=== PATIENT | female | born 1990 ===

== ENCOUNTER 2019-03-16 19:37 | Emergency (ER) | payer SELFPAY ==
--- NOTE | 2019-03-16 20:21 | ED PDOC ---
HPI: Psych/Substance Abuse Time Seen by Provider: 03/16/19 19:55 Chief Complaint (Nursing): Psychiatric Evaluation Chief Complaint (Provider): Psychiatric Evaluation History Per: Patient, [employer] Work[employer] (Belkis[employer]iana #[id number]) History/Exam Limitations: no limitations Onset/Duration Of Symptoms: Days (x2 months) Current Symptoms Are (Timing): Still Present Additional Complaint(s): 28 year old female presents to the ED via EMS for a psychiatric evaluation. Patient reports that she feels depressed and hopeless after her mom two months ago and her father got admitted to a psychiatric [facility] recently. She notes having thoughts of killing herself and her one year old with overdosing on pills because she does not want to live anymore. She denies any attempt to do so. Pt reports she feels like she just wants to keep running, but then will say "god is good" and "i have hope." Additionally, she reports having bilateral upper leg/thigh pain for the past three months unrelieved by Ibuprofen 400mg. Denies injuries, swelling, difficulty walking. Of note, patient states she had one beer earlier today. Denies visual or auditory hallucinations Pt reports she has felt like this before but has never been on medication. LNMP: 03/03/19 PMD: none provided Past Medical History Reviewed: Historical Data, Nursing Documentation, Vital Signs Vital Signs: Last Vital Signs Temp 98.1 F 03/16/19 19:37 Pulse 100 H 03/16/19 19:37 Resp 22 03/16/19 19:37 BP 137/97 H 03/16/19 19:37 Pulse Ox 99 03/16/19 19:37 - Medical History PMH: Depression (not on meds) - Surgical History Other surgeries: right breast - Family History Family History: States: Unknown Family Hx - Social History Current smoker - smoking cessation education provided: No Alcohol: Social (last drink today (one beer)) Drugs: Denies - Allergies Allergies/Adverse Reactions: Allergies Allergy/AdvReac Type Severity Reaction Status Date / Time No Known Allergies Allergy Verified 03/16/19 19:37 Review of Systems ROS Statement: Except As Marked, All Systems Reviewed And Found Negative Musculoskeletal: Positive for: Leg Pain (bilateal lower extremity) Psych: Positive for: Depression, Suicidal ideation (and homicidal ideation by taking pills and giving pills to her baby) Physical Exam - Reviewed Nursing Documentation Reviewed: Yes Vital Signs Reviewed: Yes - Physical Exam Comments: GENERAL APPEARANCE: Patient is awake, alert, oriented x 3, tearful but consolable. SKIN: Warm, dry; (-) cyanosis HEAD: normocephalic, atraumatic EYES: PERRLA, EOMI ENMT: Mucous membranes moist. Airway patent: (-) stridor. NECK: (-) tenderness, (-) stiffness, (-) lymphadenopathy. HEART AND CARDIOVASCULAR: (-) irregularity; (-) murmur, (-) gallop. CHEST AND RESPIRATORY: (-) rales, (-) rhonchi, (-) wheezes; breath sounds equal. Well healed scar to right upper chest. ABDOMEN: Soft, (-) distention, (-) tenderness, (-) guarding. EXTREMITIES: Bilateral lower: (-) swelling, (-) tenderness, (-) deformities; full ROM, capillary refill less than two seconds, sensation intact, and pulses 2+. NEURO AND PSYCH: Mental status as above. 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 Pupils equal and reactive; EOMI; (-) facial asymmetry; tongue and uvula midline. Strength and DTRs symmetric. - Laboratory Results Result Diagrams: 03/16/19 20:28 03/16/19 20:28 - ECG O2 Sat by Pulse Oximetry: 99 (RA) Pulse Ox Interpretation: Normal Medical Decision Making Medical Decision Making: Initial Impression: psychiatric evaluation Time: 2015 Initial Plan: --Alcohol serum --CMP --Drug screen --U-preg --CBC with differential --Tylenol 650mg PO --Patient placed on 1:1 observation for SI/HI --Urinalysis --Will be referred to crisis after being medically cleared Pt's blood alcohol level is 275, crisis will evaluate pt when sober 23:00 case endorse to Sur[facility] WILSON, pending crisis eval and dispo -------- Scribe Attestation: Documented by Ayaka Castillo acting as a scribe for Kamran Obrien PA-C. Provider Scribe Attestation: All medical record entries made by the Scribe were at my direction and personally dictated by me. I have reviewed the chart and agree that the record accurately reflects my personal performance of the history, physical exam, medical decision making, and the department course for this patient. I have also personally directed, reviewed, and agree with the discharge instructions and di sposition. Disposition - Clinical Impression Clinical Impression: Major depression, Suicidal ideation - Patient ED Disposition Is Patient to be Admitted: Transfer of Care (case endorse to [facility], pending crisis eval and dispo) Counseled Patient/Family Regarding: Studies Performed, Diagnosis, Need For Followup - Disposition Disposition: Transfer of Care (case endorse to [facility], pending crisis eval and dispo) Disposition Time: 23:00 Condition: FAIR Forms: [employer] (Divehi)
[2019-03-16 20:33] LABS: BASO # 0.1 K/uL (0.0-0.2); BASO % 0.7 % (0.0-2.0); EOS # 0.1 K/uL (0.0-0.7); EOS % 0.9 % (0.0-4.0); HEMOGLOBIN 15.6 g/dL (12.0-16.0); LYMPH # 3.2 K/uL (1.0-4.3); LYMPH % 39.2 % (20.0-40.0); MEAN CORPUSCULAR HEMOGLOBIN 32.8 pg (27.0-31.0); MEAN CORPUSCULAR HGB CONC 34.9 g/dL (33.0-37.0); MEAN PLATELET VOLUME 7.9 fl (7.2-11.7); MONO # 0.5 K/uL (0.0-0.8); NEUT # 4.4 K/uL (1.8-7.0); NEUT % 53.2 % (50.0-75.0); NRBC % 0.1 % (0.0-0.0); RBC 4.75 Mil/uL (3.80-5.20); RED CELL DISTRIBUTION WIDTH 13.1 % (11.5-14.5); WHITE BLOOD COUNT 8.2 K/uL (4.8-10.8)
[2019-03-16 20:42] LABS: SQUAMOUS EPITHIAL 1 /hpf (0-5); URINE BACTERIA RARE (<OCC); URINE BILIRUBIN NEGATIVE (NEGATIVE); URINE BLOOD NEGATIVE (NEGATIVE); URINE CLARITY CLEAR (Clear); URINE COLOR STRAW (YELLOW); URINE GLUCOSE (UA) NEG (NEGATIVE); URINE LEUKOCYTE ESTERASE NEG Leu/uL (Negative); URINE PROTEIN NEGATIVE (NEGATIVE); URINE UROBILINOGEN 0.2-1.0 mg/dL (0.2-1.0)
[2019-03-16 20:45] LABS: ALB/GLOB RATIO 1.2 (1.0-2.1); ALBUMIN 5.1 g/dL (3.5-5.0); ALT/SGPT 21 U/L (9-52); AST/SGOT 26 U/L (14-36); BLOOD UREA NITROGEN 6 mg/dl (7-17); CALCIUM 9.5 mg/dL (8.4-10.2); GFR NON-AFRICAN AMERICAN > 60
[2019-03-16 20:58] LABS: BARBITURATES, UR NEGATIVE (NEGATIVE); BENZODIAZEPINES, UR NEGATIVE (NEGATIVE); OPIATES, UR NEGATIVE (NEGATIVE); PHENCYCLIDINE, UR NEGATIVE (NEGATIVE)
--- NOTE | 2019-03-17 01:19 | ED PDOC ---
- Laboratory Results Result Diagrams: 03/16/19 20:03/16/19 20:28 Lab Results: Total Bilirubin 0.3 mg/dl (0.2-1.3) 03/16/19 20: AST 26 U/L (14-36) 03/16/19 20: ALT 21 U/L (9-52) 03/16/19 20: Alkaline Phosphatase 78 U/L (38-126) 03/16/19 20: Total Protein 9.1 G/DL (6.3-8.2) H 03/16/19 20: Albumin 5.1 g/dL (3.5-5.0) H 03/16/19 20: Globulin 4.1 gm/dL (2.2-3.9) H 03/16/19: Albumin/Globulin Ratio 1.2 (1.0-2.1) 03/16/19 20: Urine Color Straw (YELLOW) 03/16/19 20: Urine Clarity Clear (Clear) 03/16/19 20: Urine pH 6.0 (5.0-8.0) 03/16/19 20: Ur Specific [place] < 1.005 (1.003-1.030) 03/16/19 20: Urine Protein Negative mg/dL (NEGATIVE) 03/16/19 20: Urine Glucose (UA) Neg mg/dL (NEGATIVE) 03/16/19 20: Urine Ketones Negative mg/dL (NEGATIVE) 03/16/19 20:25 Urine Blood Negative (NEGATIVE) 03/16/19 20:25 Urine Nitrate Negative (NEGATIVE) 03/16/19 20: Urine Bilirubin Negative (NEGATIVE) 03/16/19 20:25 Urine Urobilinogen 0.2-1.0 mg/dL (0.2-1.0) 03/16/19 20:25 Ur Leukocyte Esterase Neg [place]/uL (Negative) 03/16/19 20:25 Urine RBC (Auto) 1 /hpf (0-3) 03/16/19 20:25 Urine Microscopic WBC 1 /hpf (0-5) 03/16/19 20:25 Ur Squamous Epith Cells 1 /hpf (0-5) 03/16/19 20:25 Urine Bacteria Rare (<OCC) 03/16/19 20:25 - ECG O2 Sat by Pulse Oximetry: 99 (RA) - Progress ED Course And Treament: Case endorsed to staff writer from Aneta Brown PA-C pending sobriety, crisis eval 00:00 Patient sleeping; no distress 1:30 Patient awake, alert, oriented x3. Ambulating steady gait. Patient evaluated by lead supply worker; does not meet criteria for admission at this time as per Dr. Solorio Information given for outpatient follow up Disposition - Clinical Impression Clinical Impression: Alcohol-induced mood disorder - POA Present On Arrival: None - Disposition Disposition: Routine/Home Disposition Time: 01:29 Condition: STABLE Instructions: Alcohol Use - When Is Drinking a Problem? Print Language: KOSOVAN
[2019-03-17 01:26] VITALS: BP 134/72; PULSE 95; RESP 18; TEMP 98.2
[2019-03-17 01:30] VITALS: O2SAT 99
== END 2019-03-17 01:40 | disposition home or self-care (01) ==
LOC: EDBD 19:37 → H.ER 19:37
DX: F10.94 Alcohol use, unspecified with alcohol-induced mood disorder (principal); F32.9 Major depressive disorder, single episode, unspecified; Y90.8 Blood alcohol level of 240 mg/100 ml or more
CPT/HCPCS: 80053; 81003; 81025; 85025; 99283; G0480